=== PATIENT | male | born 1950 | race Caucasian/White ===

== ENCOUNTER → 2016-10-06 | Outpatient (CLI) | payer BC | LOC: COL.RAD 07:49 | DX: M54.5 Low back pain (principal); M48.06 Spinal stenosis, lumbar region; M25.78 Osteophyte, vertebrae; M51.26 Other intervertebral disc displacement, lumbar region ==

== ENCOUNTER → 2016-10-19 | Outpatient (CLI) | payer BC | LOC: MHCPAIN 09:00 | DX: G89.29 Other chronic pain (principal); M47.817 Spondylosis without myelopathy or radiculopathy, lumbosacral region; M54.16 Radiculopathy, lumbar region; M16.9 Osteoarthritis of hip, unspecified | CPT/HCPCS: G0463; J1100; Q9967 ==

== ENCOUNTER → 2016-10-21 | Outpatient (CLI) | payer BC | LOC: MHCPAIN 11:55 | DX: M47.27 Other spondylosis with radiculopathy, lumbosacral region (principal) | CPT/HCPCS: J1100; Q9967 ==

== ENCOUNTER → 2016-11-22 | Outpatient (CLI) | payer BC | LOC: MHCPAIN 07:31 | DX: G89.29 Other chronic pain (principal); M47.817 Spondylosis without myelopathy or radiculopathy, lumbosacral region; M54.16 Radiculopathy, lumbar region; M53.3 Sacrococcygeal disorders, not elsewhere classified | CPT/HCPCS: G0463 ==

== ENCOUNTER 2016-12-10 10:00 | Outpatient (RCR) | payer BC | END 2016-12-21 11:12 | disposition still patient (30) | LOC: WSPT 10:00 | DX: M54.16 Radiculopathy, lumbar region (principal); M47.817 Spondylosis without myelopathy or radiculopathy, lumbosacral region; M16.9 Osteoarthritis of hip, unspecified ==

== ENCOUNTER → 2016-12-23 | Outpatient (CLI) | payer BC | LOC: MHCPAIN 10:40 | DX: M47.817 Spondylosis without myelopathy or radiculopathy, lumbosacral region (principal) | CPT/HCPCS: J1100; Q9967 ==

== ENCOUNTER → 2017-02-22 | Outpatient (CLI) | payer BC | LOC: MHCPAIN 08:49 | DX: G89.29 Other chronic pain (principal); M47.27 Other spondylosis with radiculopathy, lumbosacral region | CPT/HCPCS: G0463 ==

== ENCOUNTER → 2017-09-27 | Outpatient (CLI) | payer MEDICARE, BC | LOC: MHCPAIN 08:23 | DX: G89.29 Other chronic pain (principal); M47.817 Spondylosis without myelopathy or radiculopathy, lumbosacral region; M54.16 Radiculopathy, lumbar region; M53.3 Sacrococcygeal disorders, not elsewhere classified; M48.061 Spinal stenosis, lumbar region without neurogenic claudication; M16.11 Unilateral primary osteoarthritis, right hip | CPT/HCPCS: G0463 ==

== ENCOUNTER 2018-03-21 08:52 | Outpatient (RCR) | payer MEDICARE, BC | END 2018-03-21 09:04 | disposition home or self-care (01) | LOC: WSPT 08:52 | DX: Z01.818 Encounter for other preprocedural examination (principal); M16.11 Unilateral primary osteoarthritis, right hip | CPT/HCPCS: G8978-GP; G8979-GP; G8980-GP ==

== ENCOUNTER → 2018-06-06 10:15 | Outpatient (RCR) | payer MEDICARE, BC | END | disposition home or self-care (01) | LOC: WSPT 03-31 14:49 | DX: Z47.1 Aftercare following joint replacement surgery (principal); Z96.641 Presence of right artificial hip joint | CPT/HCPCS: G8978-GP; G8979-GP; G8980-GP ==

== ENCOUNTER → 2018-06-13 | Outpatient (CLI) | payer MEDICARE, BC | LOC: MHCPAIN 08:47 | DX: G89.29 Other chronic pain (principal); M47.817 Spondylosis without myelopathy or radiculopathy, lumbosacral region; M54.16 Radiculopathy, lumbar region; M53.3 Sacrococcygeal disorders, not elsewhere classified | CPT/HCPCS: G0463 ==

== ENCOUNTER 2021-12-14 08:04 | Emergency (ER) | payer MEDICARE, BC ==
[~2021-12-14] VITALS: Ht 175.3 cm; Wt 79.1 kg
[2021-12-14 08:11] VITALS: TEMP 98.1
[2021-12-14 08:45] LABS: BASO # 0.1 K/mm3 (0.0-0.2); BASO % 0.4 % (0.0-2.0); EOS % 0.1 % (0.0-4.0); GRAN # 10.3 K/mm3 (1.4-6.5); GRAN % 85.8 % (42.2-75.2); HEMATOCRIT 42.3 % (42.0-52.0); LYMPH % 8.6 % (20.0-51.0); MEAN CELL VOLUME 91 fl (80.0-100.0); MEAN CORPUSCULAR HEMOGLOBIN 32 pg (27-31); MEAN CORPUSCULAR HGB CONC 36 g/dl (33.0-37.0); MEAN PLATELET VOLUME 8.9 fl (7.4-10.4); MONO # 0.6 K/mm3 (0.1-0.6); MONO % 4.8 % (1.7-9.3); PLATELET COUNT 184 K/mm3 (130-400); RED BLOOD COUNT 4.66 M/mm3 (4.20-5.60); REDCELL DISTRIBUTION WIDTH-CV 11.9 % (11.5-14.5)
[2021-12-14 09:01] LABS: COLLECTION METHOD CLEAN CATCH
[2021-12-14 09:07] LABS: ALBUMIN 4.1 gm/dL (3.4-4.8); BILIRUBIN,TOTAL 0.8 mg/dL (0.2-1.2); C-REACTIVE PROTEIN 0.09 mg/dL (0.00-0.50); CALCIUM 9.3 mg/dL (8.4-10.2); CREATININE, serum 0.74 mg/dL (0.72-1.25); POTASSIUM 3.7 mmol/L (3.5-4.5); TOTAL PROTEIN 7.4 gm/dL (6.2-8.1)
[2021-12-14 09:26] LABS: MUCOUS Present (NOT PRESENT); PH 5 (5-8); SQUAMOUS EPITHELIAL 0-2 /hpf (0-10); URINE APPEARANCE Hazy (CLEAR/HAZY); URINE BACTERIA None Seen /hpf (NONE SEEN); URINE BILIRUBIN Negative (NEGATIVE); URINE BLOOD 3+ (NEGATIVE); URINE COLOR Yellow (YELLOW); URINE GLUCOSE Negative (NEGATIVE); URINE KETONE Negative (NEGATIVE); URINE LEUKOCYTE ESTERASE Trace (NEGATIVE); URINE NITRATE Negative (NEGATIVE); URINE PROTEIN(semi-quant) Negative (NEGATIVE); URINE RBC >50 /hpf (0-2); URINE UROBILINOGEN Negative (NEGATIVE)
[2021-12-14] MEDS ORDERED: OMNICEF 300MG300 MG PO (09:58)
[2021-12-14 10:08] VITALS: BP 129/70; PULSE 69
== END 2021-12-14 10:10 | disposition home or self-care (01) ==
LOC: COL.ER 08:04
PROVIDERS: Family Medicine
DX: N39.0 Urinary tract infection, site not specified (principal); Z88.0 Allergy status to penicillin
CPT/HCPCS: J0696; J7120

== ENCOUNTER 2023-07-15 08:20 | Day surgery (SDC) | payer MEDICARE, BC ==
[~2023-07-15] VITALS: Ht 172.8 cm; Wt 69.0 kg
[~2023-07-15 08:20] MED LIST: BETAPACE 80MG80 MG PO; COUMADIN 5MG5 MG/TAB PO; LIPITOR 40MG TA40 MG PO; LR 1,000 ML IV SCH; OMNICEF 300MG300 MG PO; PRILOSEC 20MG20 MG PO; PRINIVIL20 MG PO; PROSCAR 5MG5 MG PO; TYLENOL 500MG500 MG PO
[2023-07-15 08:32] VITALS: BP 126/71; PULSE 56; TEMP 98.4
[2023-07-15] MEDS ORDERED: NS Flush 10 ML SYRINGE PRN ICA (08:45)
[2023-07-15] MEDS ORDERED: NS Flush 10 ML SYRINGE BID ICA SCH (09:00)
[2023-07-15] MEDS ORDERED: CLEOCIN HCL300 MG PO (09:51)
[2023-07-15 09:55] VITALS: BP 128/79; PULSE 50
[2023-07-15 10:00] VITALS: BP 137/82; PULSE 54
[2023-07-15 10:15] VITALS: BP 121/72; BP 131/72; PULSE 52
--- NOTE | 2023-07-15 10:30 | NUR ---
pt tolerated recovery period well. vs remained within normal limits and he ambulated independently to main [facility] and was accompanied by sister. pt dressing was clean dry and intact upon discharge and he verbalized understanding of discharge instructions. pt remained free from acute complaints at time of discharge.
[2023-07-15] MEDS ORDERED: Lidocaine PF 2% (20 MG/ML) 5 ML VIAL ONE (11:00)
[2023-07-15] MEDS ORDERED: Clindamycin 150 MG CAP PO SCH (16:00)
== END 2023-07-15 10:31 | disposition home or self-care (01) ==
LOC: COL.CAR 08:20
DX: I48.0 Paroxysmal atrial fibrillation (principal)
CPT/HCPCS: C1764; J2704

== ENCOUNTER 2023-11-21 11:55 | Day surgery (SDC) | payer MEDICARE, BC ==
[2023-11-21] VITALS (9 sets, daily range): BP systolic 117–138; BP diastolic 60–78; PULSE 43–90; TEMP 98–98.4
[~2023-11-21] VITALS: Ht 172.7 cm; Wt 66.0 kg
[~2023-11-21 11:55] MED LIST changes: +CLEOCIN HCL300 MG PO; -LR 1,000 ML IV SCH
[2023-11-21 12:30] LABS: HEMATOCRIT 42.6 % (42.0-52.0); HEMOGLOBIN 14.9 g/dl (13.5-18.0); MEAN CELL VOLUME 86 fl (80.0-100.0); MEAN CORPUSCULAR HEMOGLOBIN 30 pg (27-31); MEAN CORPUSCULAR HGB CONC 35 g/dl (33.0-37.0); MEAN PLATELET VOLUME 9.7 fl (7.4-10.4); PLATELET COUNT 146 K/mm3 (130-400); RED BLOOD COUNT 4.94 M/mm3 (4.20-5.60); REDCELL DISTRIBUTION WIDTH-CV 13.4 % (11.5-14.5)
[2023-11-21 12:41] LABS: INR 1.3 (0.8-3.0); PROTHROMBIN TIME 13.6 SECONDS (9.7-12.8)
[2023-11-21] MEDS ORDERED: 1/2 NS 1,000 ML IV SCH (13:00)
[2023-11-21] MEDS ORDERED: STOOL SOFTENER100 M2 PO (13:02)
[2023-11-21] MEDS ORDERED: VITAMIN D250 MCG PO (13:03)
[2023-11-21 13:52] LABS: CALCIUM 9.7 mg/dL (8.4-10.2); CREATININE, serum 0.7 mg/dL (0.72-1.25)
[2023-11-21] MEDS ORDERED: NS 1,000 ML IV.SOLN. IR SCH (14:17)
--- NOTE | 2023-11-21 14:18 | NUR ---
SEE MERGE FOR PROCEDURE DOCUMENTATION
[2023-11-21] MEDS ORDERED: Water For Inj, Sterile 10 ML VIAL IR SCH (14:19)
[2023-11-21] MEDS ORDERED: Vancomycin 1 GM VIAL IR SCH (14:19)
[2023-11-21] MEDS ORDERED: Iohexol 350 - 100 ML VIAL IV ONE (14:20)
[2023-11-21] MEDS ORDERED: fentaNYL 50 MCG/ML 2 ML VIAL IV SCH (14:53)
[2023-11-21] MEDS ORDERED: Midazolam 2 MG/2 ML VIAL IV SCH (14:54)
[2023-11-21] MEDS ORDERED: Temazepam 15 MG CAP PO PRN (15:30)
--- NOTE | 2023-11-21 15:45 | NUR ---
PT ARRIVED FROM [facility] POST PACER. PACER SITE C/D/I AND LOOP RECORDER REMOVAL SITE C/D/I. SLING ON LEFT ARM. VSS. PT ORIENTED TO ROOM AND FLOOR. CALL LIGHT GIVEN AND ISNTRUCTED TO CALL WITH ALL NEEDS.
--- NOTE | 2023-11-21 15:48 | NUR ---
PATIENT ALERT AND ORIENTED, VITAL SIGNS STABLE. PATIENT TRANSFERRED TO BED VIA SLIDEBOARD AND SLING PLACED TO LEFT UPPER EXTREMITY. PATIENT POSITIONED FOR COMFORT AND TRANSPORTED TO [facility]. VITAL SIGNS TAKEN ON ARRIVAL, VSS. INCISION SITES REMAIN CDI. PATIENT'S SISTER CALLED WITH UPDATE. PATIENT PROVIDED CALL LIGHT AND PHONE, BED IN LOWEST POSITION, X3 BEDRAILS IN PLACE. TRANSFER OF CARE TO [facility]ILL[facility]URRELL.
[2023-11-21] MEDS ORDERED: Acetaminophen 500 MG TAB PO PRN (16:00)
[2023-11-21] MEDS ORDERED: Docusate Sodium 100 MG CAP PO PRN ×2 (16:00)
[2023-11-21] MEDS ORDERED: Acetaminophen 325 MG TAB PO PRN (16:00)
[2023-11-21] MEDS ORDERED: traMADol 50 MG TAB PO PRN (16:15)
--- NOTE | 2023-11-21 19:04 | NUR ---
report received from enedina leger. pt resting in bed finishing dinner. pt denies pain. drsg to left upper chest cdi. pt left arm resting in sling. call light in reach. all needs met at this time.
--- NOTE | 2023-11-21 20:30 | NUR ---
shift assessment complete, see documentation. pt tolerated hs meds well. pt resting in bed watching tv. call light in reach. all needs met at this time.
[2023-11-21] MEDS ORDERED: Warfarin 5 MG TAB PO SCH (21:00)
[2023-11-22 01:02] VITALS: BP_SYST 120
[2023-11-22 03:26] VITALS: BP 103/62; PULSE 96; TEMP 98
[2023-11-22 04:52] VITALS: BP_SYST 103
[2023-11-22] MEDS ORDERED: Omeprazole 20 MG **** subs to Pantoprazole 40 MG PO SCH (07:00)
[2023-11-22 07:20] LABS: BASO % 0.6 % (0.0-2.0); EOS # 0.1 K/mm3 (0.0-0.7); EOS % 0.8 % (0.0-4.0); GRAN # 4.7 K/mm3 (1.4-6.5); GRAN % 65.8 % (42.2-75.2); HEMATOCRIT 42.7 % (42.0-52.0); LYMPH # 1.5 K/mm3 (1.2-3.4); LYMPH % 21.3 % (20.0-51.0); MEAN CELL VOLUME 85 fl (80.0-100.0); MEAN CORPUSCULAR HEMOGLOBIN 30 pg (27-31); MEAN CORPUSCULAR HGB CONC 35 g/dl (33.0-37.0); MEAN PLATELET VOLUME 9.7 fl (7.4-10.4); MONO # 0.8 K/mm3 (0.1-0.6); MONO % 11.2 % (1.7-9.3); PLATELET COUNT 135 K/mm3 (130-400); RED BLOOD COUNT 5.03 M/mm3 (4.20-5.60); REDCELL DISTRIBUTION WIDTH-CV 13.5 % (11.5-14.5)
[2023-11-22 07:37] LABS: CALCIUM 9.1 mg/dL (8.4-10.2); CREATININE, serum 0.64 mg/dL (0.72-1.25); POTASSIUM 3.8 mEq/L (3.5-4.5)
[2023-11-22] MEDS ORDERED: Lisinopril 10 MG TAB PO SCH (09:00)
[2023-11-22] MEDS ORDERED: Finasteride 5 MG TAB PO SCH (09:00)
[2023-11-22] MEDS ORDERED: Atorvastatin 40 MG TAB PO SCH (09:00)
[2023-11-22 09:04] LABS: INR 1.3 (0.8-3.0); PROTHROMBIN TIME 14.1 SECONDS (9.7-12.8)
[2023-11-22 09:08] VITALS: BP 100/63; PULSE 78; TEMP 99
[2023-11-22 09:48] VITALS: BP_SYST 100
[2023-11-22] MEDS ORDERED: BETAPACE 120MG120 MG PO (11:27)
[2023-11-22] MEDS ORDERED: PRINIVIL10 MG PO (11:27)
--- NOTE | 2023-11-22 11:29 | NUR ---
first calender worker attended clinical rounding and met with patient and spouse. Worker presented the IM and patient signed the form. Worker provided a copy to patient and placed copy in the medical record. Nancy with [facility] accepts patient to skilled care today. Patient and spouse agree with discharge and spouse will drive patient when medical cleared to discharge.
[2023-11-22 11:42] VITALS: BP 105/65; PULSE 59; TEMP 98.8
== END 2023-11-22 13:00 | disposition home or self-care (01) ==
LOC: COL.CAR 11:55 → MEDICAL 16:00 → COL.CAR 11-22 13:00 → MEDICAL 11-23 16:00 → COL.CAR 11-23 16:00
PROVIDERS: Internal Medicine Cardiovascular Disease
DX: I49.5 Sick sinus syndrome (principal); I48.0 Paroxysmal atrial fibrillation; I10 Essential (primary) hypertension; Z79.899 Other long term (current) drug therapy; Z95.818 Presence of other cardiac implants and grafts; Z79.01 Long term (current) use of anticoagulants
CPT/HCPCS: C1785; C1894; C1898; J0665-JZ; J2250; J3010; J3370; J7030; J7050; Q9967

== ENCOUNTER 2024-03-04 07:52 | Emergency (ER) | payer MEDICARE, BC ==
[~2024-03-04] VITALS: Ht 172.7 cm; Wt 65.9 kg
[~2024-03-04 07:52] MED LIST changes: +BETAPACE 120MG120 MG PO; +PRINIVIL10 MG PO; +STOOL SOFTENER100 M2 PO; +VITAMIN D250 MCG PO
[2024-03-04 07:58] VITALS: TEMP 98.2
[2024-03-04 08:25] LABS: BASO # 0.1 K/mm3 (0.0-0.2); BASO % 0.8 % (0.0-2.0); EOS # 0.1 K/mm3 (0.0-0.7); EOS % 1.3 % (0.0-4.0); GRAN # 4.7 K/mm3 (1.4-6.5); GRAN % 65.9 % (42.2-75.2); HEMATOCRIT 41.8 % (42.0-52.0); HEMOGLOBIN 14.6 g/dl (13.5-18.0); LYMPH # 1.6 K/mm3 (1.2-3.4); LYMPH % 22.5 % (20.0-51.0); MEAN CELL VOLUME 92 fl (80.0-100.0); MEAN CORPUSCULAR HEMOGLOBIN 32 pg (27-31); MEAN CORPUSCULAR HGB CONC 35 g/dl (33.0-37.0); MONO # 0.7 K/mm3 (0.1-0.6); MONO % 9.2 % (1.7-9.3); PLATELET COUNT 168 K/mm3 (130-400); RED BLOOD COUNT 4.57 M/mm3 (4.20-5.60); REDCELL DISTRIBUTION WIDTH-CV 13.1 % (11.5-14.5)
[2024-03-04 08:32] LABS: INR 2.8 (0.8-3.0); PROTHROMBIN TIME 29.8 SECONDS (9.7-12.8)
[2024-03-04 08:43] LABS: ALBUMIN 4.3 g/dL (3.4-4.8); BILIRUBIN,TOTAL 1.6 mg/dL (0.2-1.2); CALCIUM 9.6 mg/dL (8.4-10.2); CREATININE, serum 0.73 mg/dL (0.72-1.25); TOTAL PROTEIN 7.6 g/dl (6.2-8.1)
[2024-03-04 08:50] LABS: COLLECTION METHOD CLEAN CATCH
[2024-03-04 08:59] LABS: URINE APPEARANCE CLEAR (CLEAR/HAZY); URINE BLOOD 3+ (NEGATIVE); URINE COLOR RED (YELLOW); URINE GLUCOSE NEGATIVE (NEGATIVE); URINE KETONE NEGATIVE (NEGATIVE); URINE NITRATE NEGATIVE (NEGATIVE); URINE PROTEIN(semi-quant) 3+ (NEGATIVE); URINE UROBILINOGEN 0.2 E.U/dL (0.2-1.0)
[2024-03-04] MEDS ORDERED: CEFTIN 250250 MG/TAB PO (09:16)
[2024-03-04 09:26] VITALS: BP 133/81; PULSE 70
== END 2024-03-04 09:26 | disposition home or self-care (01) ==
LOC: COL.ER 07:52
PROVIDERS: Family Medicine
DX: N30.01 Acute cystitis with hematuria (principal); Z79.01 Long term (current) use of anticoagulants; Z88.0 Allergy status to penicillin